=== PATIENT | male | born 1970 | race Caucasian/White ===

== ENCOUNTER 2017-01-19 01:00 | Emergency (ER) | payer SELFPAY ==
[~2017-01-19] VITALS: Ht 188 cm; Wt 90.7 kg
[2017-01-19 01:01] VITALS: BP 150/92
== END 2017-01-19 03:34 | disposition left against medical advice (07) ==
LOC: ER 01:00
DX: S01.91XA Laceration without foreign body of unspecified part of head, initial encounter (principal); R42 Dizziness and giddiness; Z53.21 Procedure and treatment not carried out due to patient leaving prior to being seen by health care provider; V23.4XXA Motorcycle driver injured in collision with car, pick-up truck or van in traffic accident, initial encounter; Y93.89 Activity, other specified; Y92.89 Other specified places as the place of occurrence of the external cause; Y99.8 Other external cause status
CPT/HCPCS: 70450; 70486; 72125; 72128; 72131

== ENCOUNTER → 2017-10-23 | Emergency (ER) | payer SELFPAY | END | disposition left against medical advice (07) | LOC: ER 06:15 | DX: T74.21XA Adult sexual abuse, confirmed, initial encounter (principal); Z53.21 Procedure and treatment not carried out due to patient leaving prior to being seen by health care provider ==